=== PATIENT | female | born 2000 | race Caucasian/White ===

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

== ENCOUNTER → 2020-05-29 | Outpatient (CLI) | payer BC | LOC: LAB 11:44 | DX: Z20.828 Contact with and (suspected) exposure to other viral communicable diseases (principal) ==

== ENCOUNTER → 2021-12-07 | Outpatient (CLI) | payer OTHER ==
[2021-12-08 17:52] LABS: HEPATITIS B SURFACE ANTIBODY 2.7 (())
== END ==
LOC: LAB 12:25
PROVIDERS: Family Medicine
DX: Z02.9 Encounter for administrative examinations, unspecified (principal)